=== PATIENT | female | born 1965 | race Caucasian/White ===

== ENCOUNTER → 2016-09-17 | Outpatient (CLI) | payer OTHER ==
--- NOTE | ~2016-09-17 | NM22 ---
[facility] A Service of [facility] RADIOLOGY TEXT RESULTS PATIENT: JORGE SMITH LOCATION: [facility] : 69 UNIT #: [id number] AGE: [address]: Murali Littlejohn MD SEX: F ORDER DR: [id number] [place] [id number] [facility]. [place], [place] [address] [id number] O MR#: [id number] Acc #: [id number] NAME: JORGE SMITH : 1965 SEX: F STUDY DATE/TIME: 09/17/2016 12:33 UNIT: [facility] ROOM: STUDY DESCRIPTION: NM Hepatobiliary W GB Pharm Attending Physician: Murali Littlejohn M.D. Referring Physician: Murali Littlejohn M.D. Ordering Physician: Murali Littlejohn M.D. MEDICAL IMAGING REPORT This report is preliminary unless electronic signature is present EXAM HIDA scan with Kinevac CCK 09/17/2016 HISTORY Epigastric burning abdominal pain with nausea and vomiting after meals, constipation, abdominal bloating and weight gain of 30 pounds in 6 months. Symptoms began 1 year ago. TECHNIQUE The patient received an intravenous injection of 5.2 mCi of Tc-99m tagged Choletec for hepatobiliary imaging. 1 hour following the injection of the radiopharmaceutical, the patient received intravenous injection of 0.9 mcg of Kinevac. FINDINGS There is homogeneous distribution of the radiotracer throughout the liver. The gallbladder activity was seen by 30 minutes post-injection of the radiopharmaceutical. Following Kinevac injection, the gallbladder ejection fraction was 85.6% (normal is greater than 30%). IMPRESSION Normal HIDA scan with gallbladder ejection fraction of 85.6%. Dictated by... Zackery Freeman M.D. THIS IS AN ELECTRONICALLY VERIFIED REPORT Zackery Freeman M.D. at 09/21/2016 9:19 AM KRT/pcl TD: 09/17/2016 20:24 [facility] A Service of [facility] RADIOLOGY TEXT RESULTS PATIENT: JORGE SMITH LOCATION: [facility] #: [id number] : 69 UNIT #: [id number] AGE: [address]: Murali Littlejohn MD SEX: F ORDER DR: ODIN #: [id number] MEDICAL IMAGING REPORT Page 1 of 1 COPY
--- NOTE | ~2016-09-17 | US6 ---
[facility] A Service of [facility] RADIOLOGY TEXT RESULTS PATIENT: JORGE SMITH LOCATION: [facility] : 69 UNIT #: [id number] AGE: [address]: Murali Littlejohn MD SEX: F ORDER DR: [id number] [facility] [address] [place], [place] [address] [id number] O MR#: [id number] Acc #: [id number] NAME: JORGE SMITH : 1965 SEX: F STUDY DATE/TIME: 09/17/2016 8:00 UNIT: [facility] ROOM: STUDY DESCRIPTION: US Abdominal Limited Attending Physician: Murali Littlejohn M.D. Referring Physician: Murali Littlejohn M.D. Ordering Physician: Murali Littlejohn M.D. Primary Care Physician: No Primary Care Physician MEDICAL IMAGING REPORT This report is preliminary unless electronic signature is present EXAM Right upper quadrant abdominal ultrasound. INDICATIONS Generalized abdominal pain for the past 5 years. PROCEDURE Ortiz-scale and Doppler imaging, right upper quadrant of the abdomen. COMPARISON 10/08/2014 FINDINGS Visualized portions of the pancreas are unremarkable. Redemonstration of patient's known abdominal aortic dissection. Common duct prominent measuring up to 11 mm. There is no liver mass seen on submitted images. The liver measures 14 cm. No gallstones are seen. Right kidney measures 9.3 cm and is unremarkable. IMPRESSION 1. Prominence of the common duct without evidence for cholelithiasis. Correlate with laboratory values. The common duct measures up to 11 mm, previously measured at approximately 8 mm. 2. Redemonstration of the patient's known abdominal aortic dissection. Dictated by... Ronn Villarreal M.D. THIS IS AN ELECTRONICALLY VERIFIED REPORT Ronn Villarreal M.D. at 09/21/2016 7:22 AM ANNY/rashaad [facility] A Service [facility] RADIOLOGY TEXT RESULTS PATIENT: JORGE SMITH LOCATION: [facility] : 69 UNIT #: [id number] AGE: [address]: Murali Littlejohn MD SEX: F ORDER DR: TD: 09/17/2016 18:12 JOB #: [id number] MEDICAL IMAGING REPORT Page 1 of 1 COPY
== END | disposition home or self-care (01) ==
LOC: CGUS 07:30
DX: R10.11 Right upper quadrant pain (principal); I71.02 Dissection of abdominal aorta
CPT/HCPCS: 76705; 78227; A9537; J2805

== ENCOUNTER → 2016-10-27 | Outpatient (CLI) | payer OTHER ==
--- NOTE | ~2016-10-27 | CR181 ---
[facility] A Service of [facility] RADIOLOGY TEXT RESULTS PATIENT: JORGE SMITH LOCATION: [facility] : 69 UNIT #: [id number] AGE: [address]: Vladimir Glasgow PA-C SEX: F ORDER DR: [id number] [facility] [address] [place], [place] [address] [id number] O MR#: [id number] Acc #: [id number] NAME: JORGE SMITH : 1965 SEX: F STUDY DATE/TIME: 10/27/2016 15:39 UNIT: [facility] ROOM: STUDY DESCRIPTION: CR Lumbar Spine 2 or 3 Views Attending Physician: Vladimir Glasgow P.A.-C. Referring Physician: Vladimir Glasgow P.A.-C. Ordering Physician: Vladimir Glasgow P.A.-C. Primary Care Physician: Cedric Tracy M.D. MEDICAL IMAGING REPORT This report is preliminary unless electronic signature is present EXAM Lumbar spine, 10/27 at 15:39. INDICATION Chronic back pain. Symptoms for 1 year. Patient reinjured her back lifting a heavy brick. Multiple prior surgeries. FINDINGS Four views of the lumbar spine were obtained including flexion/extension views. Comparison made with CT lumbar spine from 02/10/16. Patient is fused from L4 through S1 with bilateral pedicle screws. Lumbar alignment is normal. There is no subluxation in flexion or extension. Again seen are benign calcifications projecting over the spine. These are noted to be in the left upper quadrant of the patient's prior CT. IMPRESSION L4 through S1 fusion. Hardware is unchanged. Alignment is normal. There are no compression fractures. Dictated by... Mark Patel Jr., M.D. THIS IS AN ELECTRONICALLY VERIFIED REPORT Mark Patel Jr., M.D. at 10/28/2016 6:08 AM MING/pablo TD: 10/27/2016 22:35 JOB #: [id number] MEDICAL IMAGING REPORT Page 1 of 1 COPY
== END | disposition home or self-care (01) ==
LOC: CRAD 14:53
DX: M51.36 Other intervertebral disc degeneration, lumbar region (principal); Z98.1 Arthrodesis status
CPT/HCPCS: 72100

== ENCOUNTER → 2016-10-27 | Outpatient (CLI) | payer OTHER ==
[2016-10-27 15:26] LABS: HEMATOCRIT 42.4 % (35.0-45.0); MEAN CELL VOLUME 88.6 FL (83-96); MEAN CORPUSCULAR HEMOGLOBIN 29.4 PG (28-34); MEAN CORPUSCULAR HGB CONC 33.1 g/dL (30-36); MEAN PLATELET VOLUME 6.7 FL (6.5-11.5); RED BLOOD COUNT 4.78 X10e (3.90-5.30); RED CELL DISTRIBUTION WIDTH 15.5 % (11.0-15.5); WHITE BLOOD COUNT 8.9 X10e3 (4.0-10.5)
[2016-10-27 15:53] LABS: ALBUMIN SERUM 4.6 g/dL (3.5-5.0); BILIRUBIN,TOTAL 0.6 mg/dL (0.2-2.0); CALCIUM SERUM 9.6 mg/dL (8.4-10.2); GLOM FILT RATE Estimated 66.1 mL/min (>60); POTASSIUM 4.2 mmol/L (3.5-5.1); PROTEIN TOTAL SERUM 8.6 g/dL (6.0-8.3)
== END | disposition home or self-care (01) ==
LOC: CLAB 14:42
PROVIDERS: Internal Medicine
DX: R19.7 Diarrhea, unspecified (principal); R10.9 Unspecified abdominal pain
CPT/HCPCS: 36415; 80053; 85027

== ENCOUNTER → 2016-10-29 | Outpatient (CLI) | payer OTHER | END | disposition home or self-care (01) | LOC: CLAB 14:05 | DX: R19.7 Diarrhea, unspecified (principal); R10.9 Unspecified abdominal pain | CPT/HCPCS: 87045; 87328; 87329; 87427; 87899 ==

== ENCOUNTER → 2016-12-16 | Outpatient (CLI) | payer OTHER | END | disposition home or self-care (01) | LOC: CRC 12:57 | DX: R06.02 Shortness of breath (principal) | CPT/HCPCS: 94060; 94726; 94729 ==